=== PATIENT | female | born 1990 | race Caucasian/White ===

== ENCOUNTER 2016-11-28 19:12 | Emergency (ER) | payer MEDICAID | END 2016-11-29 03:27 | disposition home or self-care (01) | LOC: ER 19:12 | DX: M79.651 Pain in right thigh (principal); M25.561 Pain in right knee; M79.661 Pain in right lower leg; M25.571 Pain in right ankle and joints of right foot; M79.652 Pain in left thigh; M25.562 Pain in left knee; M79.662 Pain in left lower leg; M25.572 Pain in left ankle and joints of left foot; M25.552 Pain in left hip; R20.9 Unspecified disturbances of skin sensation; K21.9 Gastro-esophageal reflux disease without esophagitis; F41.1 Generalized anxiety disorder; F32.9 Major depressive disorder, single episode, unspecified; Z98.84 Bariatric surgery status | CPT/HCPCS: 36415; 80053; 81001; 85025; 87088; 93970 ==